=== PATIENT | female | born 1955 | race Caucasian/White ===

== ENCOUNTER 2017-08-09 09:32 | Day surgery (SDC) | payer OTHER ==
[~2017-08-09] VITALS: Ht 172.7 cm; Wt 65.4 kg
[2017-08-09 10:32] VITALS: Ht 172.7 cm; Wt 65.4 kg
[2017-08-09 10:34] VITALS: BP 164/98; PULSE 55; RESP 22
[2017-08-09] MEDS ORDERED: loratadine PO (10:55)
[2017-08-09] MEDS ORDERED: excedrin PO (10:55)
[2017-08-09] MEDS ORDERED: atenolol PO (10:55)
--- NOTE | 2017-08-09 11:29 | OPPN ---
Date/Time of Note Date/Time of Note DATE: 08/09/17 TIME: 11:28 Operative Report Preoperative Diagnosis Screening Postoperative Diagnosis Sigmoid polyp was removed Internal hemorrhoids Operation/Procedure Performed Colonoscopy and biopsy Surgeon see signature line interior design assistant None Anesthesia: moderate sedation Estimated blood loss: none Transfusion Required none Specimen Sigmoid polyp Grafts/Implants none Complications none VISHAL SCHMITZ MD Aug 09, 2017 11:29
[2017-08-09] MEDS ORDERED: FENTAnyl 50 MCG/ML VIAL ONE (11:34)
[2017-08-09] MEDS ORDERED: MIDAZOLAM 1 MG/ML 2 ML INJ ONE ×2 (11:34)
[2017-08-09 11:55] VITALS: BP 136/78; RESP 14
--- NOTE | 2017-08-09 14:27 | GILP ---
DATE OF PROCEDURE: 08/09/2017 PROCEDURE PERFORMED: Colonoscopy and biopsy. SURGEON: Hazel White MD PREOPERATIVE DIAGNOSIS: Screening colonoscopy. POSTOPERATIVE DIAGNOSES: 1. Colonoscopy all the way to the cecum. 2. Sigmoid colon polyp was removed using biopsy forceps. 3. Internal hemorrhoids. INDICATIONS FOR PROCEDURE: Ms. Zhane Lamar is a 62-year-old female patient who was scheduled for screening colonoscopy. The procedure and possible complications were well explained to the patient. She understood and consented to the procedure. DESCRIPTION OF PROCEDURE: Under the influence of fentanyl and Versed, the colonoscope was carefully introduced in the rectum. Under direct vision, it was advanced all the way to the cecum. Findings: The patient had a sigmoid colon polyp and it was removed using biopsy forceps. She had internal hemorrhoids. She tolerated the procedure very well. There was no complication from the procedure. At the end of procedure, she was awake with stable vital signs and she was discharged home in care of her family. IMPRESSION: Please see postoperative diagnoses. PLAN: 1. Await histopathology report. 2. Next screening colonoscopy in 5 years. Dictated By: MD HARISH Paredes/joy/nitza /Document#: [id number]
== END 2017-08-09 13:11 | disposition home or self-care (01) ==
LOC: GIL 09:32
PROVIDERS: ATTEND Internal Medicine Gastroenterology
DX: Z12.11 Encounter for screening for malignant neoplasm of colon (principal); D12.5 Benign neoplasm of sigmoid colon; K64.8 Other hemorrhoids; I10 Essential (primary) hypertension
CPT/HCPCS: 45380; 88305; J2250; J3010; Z7610

== ENCOUNTER 2017-09-04 05:49 | Day surgery (SDC) | payer OTHER ==
[2017-09-01 11:15] VITALS: Ht 172.7 cm; Wt 66.0 kg
[2017-09-04] VITALS (10 sets, daily range): BP systolic 138–149; BP diastolic 80–91; PULSE 57–76; RESP 16–22
[~2017-09-04] VITALS: Ht 172.7 cm; Wt 66.0 kg
[~2017-09-04 05:49] MED LIST: atenolol PO; excedrin PO; loratadine PO
[2017-09-04] MEDS ORDERED: ACYC800T PO (07:05)
[2017-09-04] MEDS ORDERED: ATEN-51 PO (07:05)
[2017-09-04] MEDS ORDERED: PREMVAG VAG (07:05)
[2017-09-04] MEDS ORDERED: ROPIVACAINE 0.5 % 30 ML VIAL ONE (07:48)
[2017-09-04] MEDS ORDERED: MIDAZOLAM 1 MG/ML 2 ML INJ ONE (07:49)
[2017-09-04] MEDS ORDERED: LIDOCAINE 1% (MDV) 20 ML INJ ONE (07:49)
[2017-09-04] MEDS ORDERED: PROPOFOL 20 ML ONE (07:49)
--- NOTE | 2017-09-04 07:49 | HPN ---
Date/Time of Note Date/Time of Note DATE: 09/04/17 TIME: 07:49 Interval H&P Admission Note Pt. seen H&P reviewed: No system changes FRIDA SHAW DPM Sep 04, 2017 07:49
[2017-09-04] MEDS ORDERED: LIDOCAINE 2% (MDV) 20 ML INJ ONE (07:58)
[2017-09-04] MEDS ORDERED: BUPIVACAINE 0.5% (SDV) 30 ML INJ ONE (07:58)
[2017-09-04] MEDS ORDERED: CEFAZOLIN 1 GM INJ ONE (07:58)
[2017-09-04] MEDS ORDERED: POLYMYXIN/BACITRACIN 1L IRRIG ONE (07:59)
[2017-09-04] MEDS ORDERED: DEXAMETHASONE 4 MG/ML 1 ML INJ ONE ×2 (07:59→08:00)
[2017-09-04] MEDS ORDERED: FAMOTIDINE 20 MG INJ ONE (08:00)
[2017-09-04] MEDS ORDERED: ONDANSETRON 4 MG INJ ONE ×2 (08:00→09:03)
[2017-09-04] MEDS ORDERED: ONDANSETRON 4 MG INJ IV PRN (09:30)
[2017-09-04] MEDS ORDERED: HYDROCODONE/APAP (10/325) TAB PO PRN (10:00)
--- NOTE | 2017-09-04 15:03 | RADRPT ---
PROCEDURE: X-ray fluoroscopy guidance. CLINICAL INDICATION: Left bunionectomy. TECHNIQUE: Fluoroscopic guidance was utilized in the region of the left foot for the procedure. Fluoroscopy time: 3 seconds. Number of images/sequences: 1 image. COMPARISON: None available. FINDINGS: Single image of the foot demonstrates hallus valgus. No acute fracture or dislocation is identified. IMPRESSION: 1. X-ray fluoroscopic guidance utilized for the intraoperative procedure. RPTAT: HLBP .Perico Lopez MD, MD Date Time Electronically viewed and signed by .Perico Lopez MD, MD on 09/04/2017 15:03 .P/
--- NOTE | 2017-09-06 17:10 | OPR ---
DATE OF OPERATION: 09/04/2017 SURGEON: Marcin Valverde DPM ANESTHESIOLOGIST: . ANESTHESIA: General. PREOPERATIVE DIAGNOSIS: Painful bunion, with hallux valgus, left foot. POSTOPERATIVE DIAGNOSIS: Painful bunion, with hallux valgus, left foot. OPERATION PERFORMED: Bunionectomy, with osteotomy, left 1st metatarsal. OPERATIVE PROCEDURE: The patient was brought into the operating room, placed in the table in a secure supine position. Cardiac monitoring, IV sedation and an ankle pneumatic tourniquet were utilized for this case. Preoperatively, a total of 20 mL of 0.5% Marcaine plain mixed with 2% lidocaine plain were infiltrated into the left foot in the form of a Nicholson block. Upon achieving anesthesia, the left foot and leg were prepped and draped in the usual sterile manner. The ankle pneumatic tourniquet was inflated to 250 mmHg. Procedure number 1 was then performed, bunionectomy, with osteotomy, left 1st metatarsal. A 4-cm dorsomedial incision was placed along the metatarsophalangeal joint of the left foot. The incision was deepened. Superficial bleeders were cauterized and bovied as necessary. The incision was deepened down to the capsule. A linear capsulotomy was performed. The capsule was reflected dorsally and plantarly, exposing the hypertrophic medial eminence. The hypertrophic medial eminence at the 1st metatarsal was resected with a power sagittal saw. A Chevron osteotomy was then performed 1.5 cm proximal to the metatarsophalangeal joint. The osteotomy was through and through. After transposing the osteotomy laterally 3 mm, fixation was achieved with a 3.0-mm x 18-mm cannulated [place] screw. Good bone approximation was noted, with no gapping or separation of the osteotomy site. The remaining bone was resected with a power sagittal saw and rasped smooth. No sharp edges were left behind. The surgical site was irrigated with sterile saline mixed with bacitracin solution. The capsule was then closed with 2-0 Vicryl simple interrupted sutures. Subcutaneous tissue was closed with 4-0 Vicryl simple interrupted sutures. Skin edges were reapproximated with a running 3-0 Prolene subcuticular stitch. The dressing consisted of Xeroform gauze, 4 x 4 gauze, 1/4-inch Steri-Strips, tincture of benzoin, 4 x 4 gauze, 4-inch Kerlix roll, and a 2-inch Coban compressive dressing. Immediate hyperemia was noted to all digits of the left foot upon deflating the ankle tourniquet. No intraoperative complications were encountered. Patient tolerated the above procedure well and left the OR with vital signs stable and satisfactory. Patient will follow up 1 week postop. Dictated By: Marcin Valverde DPM /joy/darion /Document#: [id number]
== END 2017-09-04 10:38 | disposition home or self-care (01) ==
LOC: SDS 05:49
PROVIDERS: ATTEND Podiatrist Primary Podiatric Medicine
DX: M21.612 Bunion of left foot (principal); M79.672 Pain in left foot; M20.12 Hallux valgus (acquired), left foot; I10 Essential (primary) hypertension
CPT/HCPCS: 28296; 73620; J0690; J1100; J2250; J2405; Z7512; Z7610; J2795